=== PATIENT | male | born 1960 | race Caucasian/White ===

== ENCOUNTER 2020-05-07 08:45 | Day surgery (SDC) | payer OTHER ==
[~2020-05-07] VITALS: Ht 177.8 cm; Wt 105.3 kg
[~2020-05-07 08:45] MED LIST: NAPR220 PO; Voltaren100 GM
[2020-05-07] MEDS ORDERED: TAMS.4ER (09:15)
== END 2020-05-07 11:43 | disposition home or self-care (01) ==
LOC: ORSCSDS 08:45
PROVIDERS: Orthopaedic Surgery
PROC: 0SBD4ZZ Excision of Left Knee Joint, Percutaneous Endoscopic Approach (ICD-10-PCS; principal; 2020-05-07 10:00)
DX: S83.242A Other tear of medial meniscus, current injury, left knee, initial encounter (principal); M17.12 Unilateral primary osteoarthritis, left knee; F17.210 Nicotine dependence, cigarettes, uncomplicated; Z79.899 Other long term (current) drug therapy
CPT/HCPCS: A9270-GY; J0171; J0690; J2250; J3010; J7120